=== PATIENT | female | born 1980 | race Hispanic/Latino ===

== ENCOUNTER 2016-11-30 12:11 | Inpatient (IN) | payer MEDICAID, OTHER, SELFPAY ==
[2016-11-30 14:00] VITALS: BMI 40.1
[2016-11-30] MEDS ORDERED: FLU VACC QS2017-18 36 mo. & older 0.5 ML SYRINGE IM ONE (14:30)
[2016-11-30] MEDS ORDERED: Ondansetron HCl/PF 4 MG/2 ML Vial IVP PRN (14:52)
[2016-11-30] MEDS ORDERED: Acetaminophen 500 MG TAB PO PRN (14:52)
[2016-11-30] MEDS ORDERED: Promethazine HCl 25 MG/ML VIAL IM PRN (14:52)
[2016-11-30] MEDS ORDERED: Lidocaine 1% (PF) 30 ML VIAL SC PRN (15:35)
[2016-11-30] MEDS ORDERED: LR / Pitocin 40 units/1000 ml 1,000 ML IV PRN (15:35)
[2016-11-30] MEDS: Lactated Ringer's 1,000 ML IV SCH ×2 (15:40→22:02)
[2016-11-30 16:13] LABS: Hematocrit 39.7 % (36.0-47.0); Mean Platelet Volume 7.4 fL (7.4-10.4); Red Blood Cell (RBC) Count 4.26 mill/uL (4.20-5.40); White Blood Cell (WBC) Count 7.5 thou/uL (4.8-10.8)
[2016-11-30] MEDS: Misoprostol 100 MCG TAB VAG SCH ×2 (18:18→22:38)
--- NOTE | 2016-11-30 21:52 | PDOC.LDPN ---
Labor & Delivery Progress Note - Subjective Subjective: comfortable - Objective Vital signs reviewed and normal: yes General: NAD Uterine fundus: non tender SVE: Dr. August and nurse Amy Dilation: 2cm Effacement: 50% (60%) Station: -1 FHT: category 2 [place] contractions every: 2-3 min Other exam findings: tachycardia into 160s - Assessment (1) Oligohydramnios Code(s): O41.00X0 - OLIGOHYDRAMNIOS, UNSP TRIMESTER, NOT APPLICABLE OR UNSP Current Visit: Yes Status: Acute Qualifiers: Fetus number: single or unspecified fetus Trimester: third trimester Qualified Code(s): O41.03X0 - Oligohydramnios, third trimester, not applicable or unspecified Comment: Monitor FHTs Induction of labor (2) Term Code(s): Z34.80 - ENCOUNTER FOR SUPRVSN OF NORMAL , UNSP TRIMESTER Current Visit: Yes Status: Acute Comment: Cytotec induction: first placed at 18:18 Continue Q4h cervical checks. (3) tachycardia Code(s): [id number] - Current Visit: Yes Status: Acute Comment: Likely secondary to tachy/toco. Giving fluid bolus Will give Terbutaline 0.25mg Plan: continue plan of care -: First cytotec was placed at 18:18. Will continue q4h checks. Reassess after Terbutaline and Fluid bolus. <Nestor August - Last Filed: 11/30/16 22:38> Attending Addendum - Attending Addendum I personally evaluated the patient and discussed the management with Dr. August. I agree with the History, Examination, Assessment and Plan documented above with any addition or exceptions noted below. Cat 1 FH traceing that has transitioned to Cat 2 traving over the past few hours. Moderate Variability and acels are noted, but baseline has been in the 160s. Materanl vitals ar enormal. O2 sats greater than 95%. Fluid bolus, position change have been initiated. Tocodynamometer shows tachysystole. A dose of terbualine to be given. I think the tachysystole along with oligohydramnios could explain the FHT tracing. <Aly Fonseca - Last Filed: 11/30/16 22:52>
[2016-11-30] MEDS ORDERED: Terbutaline Sulfate 1 MG/ML VIAL ONE (22:37)
--- NOTE | 2016-12-01 00:30 | PDOC.LDPN ---
Labor & Delivery Progress Note - Subjective Subjective: painful contractions - Objective Vital signs reviewed and normal: yes (Pulse 104) General: NAD Uterine fundus: non tender FHT: category 2 (baseline has been 150s-160s bpm. Accels noted and moderate variabilty, however, recurrent late decel noted. Persistent Cat 2 tracing despite fluids, position nickolas and resolution of tachysystole.) [place] contractions every: 3min - Assessment (1) Oligohydramnios Code(s): O41.00X0 - OLIGOHYDRAMNIOS, UNSP TRIMESTER, NOT APPLICABLE OR UNSP Current Visit: Yes Status: Acute Qualifiers: Fetus number: single or unspecified fetus Trimester: third trimester Qualified Code(s): O41.03X0 - Oligohydramnios, third trimester, not applicable or unspecified Comment: Monitor FHTs Induction of labor -: Persistent tachycardia, with recurrent late decels, in the context of oligohydramnios while remote from delivery leads me to conclude delivery is prudent. Discussed the situation with Leonela via emergency specialist phone service. Discussed R/B /I/A. While she is disappointed in needing a she is content/consents with plan for delivery.
[2016-12-01] MEDS: Lactated Ringer's 1,000 ML IV SCH ×2 (00:32→10:27)
[2016-12-01] MEDS ORDERED: Ondansetron HCl/PF 4 MG/2 ML Vial ONE (00:38)
[2016-12-01] MEDS ORDERED: Oxytocin 10 UNITS/ML VIAL ONE ×2 (00:39→01:52)
[2016-12-01] MEDS ORDERED: ePHEDrine/0.9% NaCl/PF SYRINGE 50 mg/10 ml ONE (00:39)
[2016-12-01] MEDS ORDERED: Bicitra 30 ML UDCUP PO SCH (01:00)
[2016-12-01] MEDS ORDERED: Fentanyl 250 MCG/5 ML VIAL ONE (01:41)
[2016-12-01] MEDS ORDERED: Midazolam HCl 2 mg/2 ml Vial ONE (01:41)
[2016-12-01] MEDS ORDERED: Acetaminophen 325 MG TAB PO PRN (01:48)
[2016-12-01] MEDS ORDERED: HYDROcodone/Acetaminophen 5/325 mg Tablet PO PRN (01:48)
[2016-12-01] MEDS ORDERED: Carboprost 250 MCG/ML AMP ONE (01:50)
[2016-12-01] MEDS ORDERED: Misoprostol 200 MCG TAB ONE ×3 (01:55→01:58)
[2016-12-01] MEDS ORDERED: Adacel (T-DAP) 0.5 ML VIAL IM ONE (02:00)
[2016-12-01] MEDS ORDERED: Succinylcholine Chloride 20 MG/ML 10 ml SYRINGE FS ONE (02:11)
[2016-12-01] MEDS ORDERED: Diprivan 20 ML ONE (02:11)
[2016-12-01] MEDS ORDERED: Fentanyl 100 MCG/2 ML VIAL ONE (02:58)
[2016-12-01] MEDS ORDERED: Promethazine HCl 25 MG/ML VIAL IM PRN (03:10)
[2016-12-01] MEDS ORDERED: Hydrocerin (Eucerin) Cream 120 gm Jar TOP PRN (03:10)
[2016-12-01] MEDS ORDERED: Ondansetron HCl/PF 4 MG/2 ML Vial IVP PRN (03:10)
[2016-12-01] MEDS ORDERED: diphenhydrAMINE HCl 50 MG/ML 1 ML VIAL IVP PRN (03:10)
[2016-12-01] MEDS ORDERED: Naloxone HCl 0.4 mg/ml Vial IVP PRN ×2 (03:10)
[2016-12-01] MEDS ORDERED: Promethazine HCl 25 MG SUPP PR PRN (03:10)
[2016-12-01] MEDS ORDERED: Naloxone HCl 0.4 mg/ml Vial IV PRN (03:10)
[2016-12-01] MEDS ORDERED: Communication Order-Pharmacy FS SCH (03:15)
--- NOTE | 2016-12-01 03:17 | CON ---
DATE OF CONSULTATION: 12/01/2016 TIME OF EVALUATION: 214 LOCATION: Labor and delivery OR. REQUESTING PHYSICIAN: Dr. Aly Fonseca with Family Medicine. In brief, I was asked by Dr. Fonseca to enter the OR, where he was the faculty on a primary b eing done for tachycardia and late decelerations. I was called to assess the bladder for poss ible bladder violation during entry into the peritoneal cavity. Apparently, the bladder was not vianey quately draining by Hairston when they entered the abdominal pelvic cavity. I entered just after hyste rotomy closure. I was present during backfill of the bladder with 300 mL of sterile milk via the Fo greg. No leakage of milk was noted and the bladder was intact. There was a small amount of dome polo erosalization noted about 2 cm. This will be corrected by the primary team. Once again, no transmu ral bladder injury was noted. The patient also had atony with resulting hemorrhage. Onc e again, I was called to the OR to help visualize the bladder integrity, but was not scrubbed in for the case. A hand-written progress note is also in the chart.
--- NOTE | 2016-12-01 04:07 | OP-2 ---
DATE OF PROCEDURE: 12/01/2016 RESIDENT SURGEON: Chas Berrios M.D. PHYSIOTHERAPY ASSISTANT SURGEON: Len Aldana M.D. ATTENDING SURGEON: Aly Fonseca M.D. PROCEDURE PERFORMED: Primary low transverse . POSTOPERATIVE DIAGNOSES: 1. Term intrauterine . 2. Oligohydramnios. 3. Persistent Category 2 Heart Tone Tracing. POSTOPERATIVE DIAGNOSES: 1. Term intrauterine , delivered. 2. Oligohydramnios. 3. hemorrhage secondary to uterine atony. 4. Bladder serosal injury. 5. True Umbilical Cord Knot. ANESTHESIA: Spinal followed by a general anesthetic due to patient discomfort. INDICATIONS: This is a 36-year-old G4, P1-1-1-1 at 39.1 week gestation who presented for induction of labor, but was converted to a primary low transverse indicated for persistent Category 2 Heart Tone Tracing. PROCEDURE IN DETAIL: After risks, benefits, and alternatives were explained and the patient gave consent. Preoperative antibiotics of cefazolin 2 grams IV were given. The patient was taken to the operating room, spinal anesthesia was initiated. The patient was placed in the supine position with left tilt and prepped and draped in usual sterile fashion. Pfannenstiel incision was made with a scalpel and carried down to level of fascia, which was sharply nicked. The fascia was cut and extended bilaterally with Perry scissors. The inferior and superior edge of the fascia were cut and were elevated with Kajal clamps and the underlying rectus muscle was sharply and bluntly dissected away. The recti were divided digitally and retracted manually. The peritoneum was initially attempted to be entered near the middle of the surgical field. However, it was discovered that the bladder was distended. Hairston catheter was replaced and clear urine was noted to be draining clear urine. The peritoneum was then entered bluntly superior to the distended bladder. A bladder blade was placed and bladder flap was created with Metzenbaum scissors. A bladder blade was placed in the bladder flap and a low transverse score was made with the scalpel. The uterus was entered in the midline with a scalpel. Thick meconium stained fluid was noted. The hysterotomy was extended manually. The infant was noted to be in the vertex position and was delivered by fundal pressure at 0139 hours. The mouth and nares were bulb suctioned. Cord was cut and clamped and a grossly normal female infant was handed to the awaiting nurse. Cord blood was collected. Placenta was manually extracted and then found to be intact. Three-vessel cord was noted. Given the history of oligohydramnios, placenta was sent to pathology. Also, a true knot was noted at the time of the placental extraction. The uterus was externalized and the endometrium was curetted with a dry lap. The bladder was noted to be boggy at this time. The patient received a dose of Methergine at this time. The hysterotomy was closed using 0 Monocryl suture in the running locking fashion. The uterus was still noted to be boggy and the patient received a dose of Hemabate. A second imbricating layer was performed using a second 0 Monocryl suture in the running locking fashion. At this time, the patient was experiencing significant discomfort and the Anesthesia team was asked to place the patient under general anesthesia for her comfort and to aid in the finishing of the case. The uterus was placed back in the abdomen and the hysterotomy was noted to be hemostatic. A small bleeder was noted on the posterior edge of the bladder flap. Two brneno-of-agwfu sutures using 4-0 Monocryl were used to achieve hemostasis. The abdominal cavity was cleared free of clots. Attention was then turned to the bladder serosa that was injured during entry into the abdomen. A 300 mL of sterile milk were introduced into the bladder through the Hairston catheter. No milk was noted to be leaking from the bladder. The serosal injury was closed using running 4-0 plain gut suture. The peritoneum was closed using a 3-0 Vicryl in a running fashion. Fascia was closed using a #1 Vicryl suture in a running nonlocking fashion. Skin was approximated with fernando and dressing was applied. All counts were correct x3. The patient tolerated the procedure well and was taken to the recovery room in stable condition. ESTIMATED BLOOD LOSS: 2000 mL COMPLICATIONS: 1. hemorrhage secondary to uterine atony. 2. Bladder serosal injury without perforation of the bladder. FINDINGS: Grossly normal female infant with Apgars of 9 and 9 at 1 and 5 minutes respectively and weight of 7 pounds 12 ounces. A true knot was noted at the time of delivery. Placenta appeared grossly normal with a 3-vessel cord and was sent to pathology. DRAINS: Hairston catheter gravity draining clear urine, approximately 600 mL urine prior to the introduction of the sterile milk. Dr. Fonseca was present for the entire procedure. RICHARDSON
[2016-12-01 04:15] LABS: Hematocrit 40.1 % (36.0-47.0); Mean Platelet Volume 7.1 fL (7.4-10.4); Red Blood Cell (RBC) Count 4.27 mill/uL (4.20-5.40); White Blood Cell (WBC) Count 16.9 thou/uL (4.8-10.8)
[2016-12-01] MEDS ORDERED: Ketorolac Tromethamine 30 MG/ML VIAL ONE (04:35)
[2016-12-01] MEDS: Ketorolac Tromethamine 30 MG/ML VIAL IVP PRN ×2 (04:38→12:11)
[2016-12-01] MEDS ORDERED: Ibuprofen 800 MG TAB PO SCH (06:00)
[2016-12-01] MEDS: Misoprostol 100 MCG TAB VAG SCH ×3 (10:48→16:24)
[2016-12-01] MEDS: Docusate 100 MG CAP PO PRN (14:20)
[2016-12-01] MEDS: Simethicone Chewable 80 MG TAB PO PRN ×3 (14:20→21:44)
[2016-12-01] MEDS: HYDROcodone/Acetaminophen 5/325 mg Tablet PO PRN ×3 (14:21→21:44)
[2016-12-01] MEDS: Ibuprofen 800 MG TAB PO SCH (21:44)
[2016-12-02] MEDS: Lactated Ringer's 1,000 ML IV SCH ×3 (01:59→16:16)
[2016-12-02] MEDS: HYDROcodone/Acetaminophen 5/325 mg Tablet PO PRN ×2 (03:38→09:02)
[2016-12-02] MEDS: Simethicone Chewable 80 MG TAB PO PRN ×2 (03:39→14:02)
[2016-12-02 04:53] LABS: Hematocrit 35.7 % (36.0-47.0); Mean Platelet Volume 7.2 fL (7.4-10.4); Red Blood Cell (RBC) Count 3.73 mill/uL (4.20-5.40); White Blood Cell (WBC) Count 10.9 thou/uL (4.8-10.8)
[2016-12-02] MEDS: Ibuprofen 800 MG TAB PO SCH ×3 (06:06→21:19)
[2016-12-02] MEDS: Prenatal Vitamin 1 TAB PO SCH (09:02)
[2016-12-02] MEDS: Docusate 100 MG CAP PO PRN (09:02)
--- NOTE | 2016-12-02 09:29 | PDOC.PP ---
Post Progress Note Post Day #: 1 PO intake tolerated: yes Flatus: yes Ambulation: yes Vital Signs (12 hours) Temp Pulse Resp BP Pulse Ox 12/02/16 07:28 98.3 F 94 20 112/64 92 L 12/02/16 04:15 98.7 F 106 H 16 12/02/16 00:15 98.9 F 97 16 Weight Weight 106.141 kg - Physical Examination General: NAD Cardiovascular: no m/r/g, RRR Respiratory: clear to ausculation bilateral Abdominal: + bowel sounds, no distention, appropriately TTP Result Diagrams: 12/02/16 04:18 Additional Labs: Post Labs Blood Type O POSITIVE 11/30/16 15:40 Hep Bs Antigen Non-Reactive S/CO (NonReactive) 11/30/16 15:40 (1) tachycardia Code(s): [id number] - Status: Acute Comment: Likely secondary to tachy/toco. Giving fluid bolus Will give Terbutaline 0.25mg (2) Oligohydramnios Code(s): O41.00X0 - OLIGOHYDRAMNIOS, UNSP TRIMESTER, NOT APPLICABLE OR UNSP Status: Acute Qualifiers: Fetus number: single or unspecified fetus Trimester: third trimester Qualified Code(s): O41.03X0 - Oligohydramnios, third trimester, not applicable or unspecified Comment: Monitor FHTs Induction of labor (3) Term Code(s): Z34.80 - ENCOUNTER FOR SUPRVSN OF NORMAL , UNSP TRIMESTER Status: Acute Comment: Cytotec induction: first placed at 18:18 Continue Q4h cervical checks. - Assessment/Plan -delivered via [facility], will check incision site this AM for s/s of infection. -appropriately ttp abdomen -vitals wnl -wbc trending down, normal platelets -appropriate lochia, no hematuria, able to urinate tolerating po and passing flatus -continue current pain regimen -h/h drop expected 2/2 post hemorrhage, no signs of active bleeding and pt asymptomatic <Christian Porter - Last Filed: 12/02/16 09:25> Vital Signs (12 hours) Temp Pulse Resp BP Pulse Ox 12/02/16 07:50 98.3 F 94 20 12/02/16 07:28 98.3 F 94 20 112/64 92 L 12/02/16 04:15 98.7 F 106 H 16 12/02/16 00:15 98.9 F 97 16 Weight Weight 106.141 kg Result Diagrams: 12/02/16 04:18 Additional Labs: Post Labs Blood Type O POSITIVE 11/30/16 15:40 Hep Bs Antigen Non-Reactive S/CO (NonReactive) 11/30/16 15:40 <Valorie Sanderson - Last Filed: 12/02/16 11:23> Attending Addendum - Attending Addendum I personally evaluated the patient and discussed the management with Dr. Porter on 12/02/16 I agree with the History, Examination, Assessment and Plan documented above with any addition or exceptions noted below. Doing well, pain controlled. Ambulating and passing gas. No difficulties urinating. Hg 12.1. Likely discharge tomorrow. <Valorie Sanderson - Last Filed: 12/02/16 11:23>
[2016-12-02] MEDS: HYDROcodone/Acetaminophen 7.5/325 mg Tablet PO PRN (14:03)
[2016-12-03] MEDS: HYDROcodone/Acetaminophen 7.5/325 mg Tablet PO PRN ×2 (01:23→13:09)
[2016-12-03] MEDS: Simethicone Chewable 80 MG TAB PO PRN (06:21)
[2016-12-03] MEDS: Ibuprofen 800 MG TAB PO SCH ×2 (06:22→13:09)
--- NOTE | 2016-12-03 07:46 | PDOC.PP ---
Post Progress Note Post Day #: 2 -: pain controlled. no concerns. ready to go home PO intake tolerated: yes Flatus: yes Ambulation: yes Weight Weight 106.141 kg - Physical Examination General: NAD Cardiovascular: no m/r/g, RRR Respiratory: clear to ausculation bilateral Abdominal: + bowel sounds, lochia, no distention, appropriately TTP Deviation from normal: well healed incision Fundus firm & at: 2 cm above incision Extremities: negative homans (B) Skin: no rash Neurological: no gross focal deficits Psychiatric: A&Ox3 Result Diagrams: 12/02/16 04:18 Additional Labs: Post Labs Blood Type O POSITIVE 11/30/16 15:40 Hep Bs Antigen Non-Reactive S/CO (NonReactive) 11/30/16 15:40 (1) Term Code(s): Z34.80 - ENCOUNTER FOR SUPRVSN OF NORMAL , UNSP TRIMESTER Status: Acute Comment: 36 yo now [id number] delivered by primary C/S at 39.1 wk indicated for non-reassuing FHT. Pain controlled. Tolerating PO. plan to remove fernando today and d/c home. F/U at [facility] in 2 weeks. post op H&H trended down appropriately. VSS <Chas Berrios - Last Filed: 12/03/16 07:44> Weight Weight 106.141 kg Result Diagrams: 12/02/16 04:18 Additional Labs: Post Labs Blood Type O POSITIVE 11/30/16 15:40 Hep Bs Antigen Non-Reactive S/CO (NonReactive) 11/30/16 15:40 <Valorie Snaderson - Last Filed: 12/03/16 09:42> Attending Addendum - Attending Addendum I personally evaluated the patient and discussed the management with Dr. Berrios on 12/03/16. I agree with the History, Examination, Assessment and Plan documented above with any addition or exceptions noted below. Doing well, no concerns. Passing flatus, ambulating, tolerating PO. Follow up in 2 weeks at [facility]. <Valorie Sanderson - Last Filed: 12/03/16 09:42>
[2016-12-03] MEDS: Prenatal Vitamin 1 TAB PO SCH (08:44)
[2016-12-03 11:15] VITALS: BP 113/72; TEMP 98.2
== END 2016-12-03 14:35 | disposition home or self-care (01) | DRG 765 ==
LOC: L&D/OP 12:11 → L&D 12:11 → EDSTATUS 12:19 → L&D 17:28 → 3SW 12-01 05:40
PROVIDERS: ADMIT Family Medicine; ATTEND Family Medicine
PROC: 10D00Z0 Extraction of Products of Conception, High, Open Approach (ICD-10-PCS; principal; 2016-12-01)
PROC: 0TQB0ZZ Repair Bladder, Open Approach (ICD-10-PCS; 2016-12-01)
PROC: 3E0P7VZ Introduction of Hormone into Female Reproductive, Via Natural or Artificial Opening (ICD-10-PCS; 2016-12-01)
DX: O41.03X0 Oligohydramnios, third trimester, not applicable or unspecified (principal); O72.1 Other immediate postpartum hemorrhage; O71.5 Other obstetric injury to pelvic organs; Z37.0 Single live birth; O76 Abnormality in fetal heart rate and rhythm complicating labor and delivery; O69.2XX0 Labor and delivery complicated by other cord entanglement, with compression, not applicable or unspecified; Z3A.39 39 weeks gestation of pregnancy
CPT/HCPCS: 36415; 85027; 86780; 86850; 86900; 86901; 87340; 88307; J1885; J2210; J2250; J2274; J2405; J2590; J2704; J3010; J3105; J3490